=== PATIENT | male | born 1940 | race Caucasian/White ===

== ENCOUNTER 2016-09-02 06:07 | Day surgery (SDC) | payer MEDICARE, MEDICAID ==
[~2016-09-02] VITALS: Ht 165.1 cm; Wt 70.3 kg
[2016-09-02] VITALS (19 sets, daily range): BP systolic 93–149; BP diastolic 53–76; PULSE 64–82; RESP 14–24; TEMP 97.7–98.4; O2SAT 92–99; Ht 165.1 cm; Wt 70.3 kg
[~2016-09-02 06:07] MED LIST: ALBU18HF4; ASCO-285 PO; ATOR40TA64 PO; CALC-699 PO; DOCU-139 PO; GABA-338 PO; HYDR-4010 PO; HYDR25TA PO; LISI40TA4 PO; MECL-103 PO; MELO-273 PO; METO-279 PO; NIAC500C9 PO; POTA10CA32 PO; RANI150T7 PO; VITA-285 PO; [UNRECOGNIZED DRUG - CODE]; [UNRECOGNIZED DRUG - CODE] PO; [UNRECOGNIZED DRUG - CODE] PO
--- OUTSIDE RECORDS SUMMARY | 2016-09-02 06:13 | XMS REPORT | Continuity of Care Document ---
Author Author [facility] Organization [facility] Address Unknown Phone Unavailable Support Name Relationship Address Phone OCTOBER, LINDSEY Jean DO Caregiver [address] [place] [address] Unavailable SATISH NUNEZ DO Caregiver [address] [place] [address] Unavailable KAVYA SIFUENTES Next Of Kin [address] [place] [address] Insurance Providers Guarantor Joyce Wright Address [address] [place] [address] SIS Email DENIED 16 Payer [facility] Policy Number [id number] Subscriber's Name Joyce Wright Relationship 18 Self Effective Date 16 Expiration Date 16 Payer Medicare Policy Number [id number] Subscriber's Name Joyce Wright Relationship 18 Self Chief Complaint and Reason for Visit Chief Complaint Chest Pain Reason for Visit Rib pain on right side [id number] Constipation Problems Active Problems Medical Problem Onset Date Status Abdominal cramps Unknown Acute Abdominal pain Unknown Acute Mental retardation Unknown Chronic Opiate dependence Unknown Chronic Shoulder pain, right Unknown Chronic Past Problems Medical Problem Onset Date Constipation Unknown External hemorrhoid Unknown Leg pain, right Unknown Rib pain on right side Unknown Medications Current Home Medications Medication Dose Units Route Directions Days Qty Instructions Start Date Acetaminophen (Pain Relief) 500 Mg Tablet 2 Tab Oral As Needed Albuterol Sulfate (Ventolin Hfa) 18 Gm Hfa.aer.ad As Needed 10/13/09 Ascorbic Acid (Vitamin C) 1,000 Mg Tablet.sa 1 Tab Oral Daily 02/14 Atorvastatin Calcium (Lipitor) 10 Mg Tablet 1 Tab Oral Daily 02/14 Calcium Carbonate/Vitamin D3 (Calcium 600 + D Tablet) 1 Tab Tablet 1 Tab Oral Daily 10/13/09 Codeine/Promethazine Hcl (Promethazine/Codeine Syrup) 120 Ml Syrup 10/13/09 Docusate Sodium (Stool Softener) 100 Mg Capsule 1 Tab Oral Twice A Day 10/13/09 Hydrocodone/Acetaminophen (Lortab 7.5-325 Mg Tablet) 1 Each Tablet 1 Tab Oral Every 8 Hours as needed for Pain 07/30/16 Lisinopril/Hydrochlorothiazide (Lisinopril-Hctz 10-12.5 Mg Tab) 1 Each Tablet 1 Tab Oral Daily 07/30/16 Meloxicam 7.5 Mg Tablet 7.5 Mg Oral Daily 07/30/16 Metoprolol Succinate (Toprol Xl) 50 Mg Tab.sr.24h 2 Tab Oral Daily 10/13/09 Niacin 500 Mg Capsule.sa 1 Tab Oral Bedtime 10/13/09 Phenytoin Sodium 100 Mg Capsule 3 Cap Oral Daily 10/13/09 Potassium Chloride 10 Meq Capsule.sa 1 Cap Oral Daily 10/13/09 Ranitidine Hcl 150 Mg Tablet 150 Mg Oral Bedtime Take 1 tablet, by mouth, 1 time a day (at BEDTIME). 07/30/16 Vitamin E 1,000 Unit Capsule 1 Cap Oral Daily 10/13/09 Social History Social History Problem Response Recorded Date/Time Onset Date Status Chewing Tobacco Status No 07/30/2016 4:49am Not Applicable Not Applicable Hx Substance Use No 07/30/2016 4:49am Not Applicable Not Applicable Hx Alcohol Use No 07/30/2016 4:49am Not Applicable Not Applicable Tobacco Usage none 06/08/2015 12:20am Not Applicable Not Applicable Query Response Start Date Stop Date Smoking Status Never smoker Hospital Discharge Instructions No hospital discharge instructions. Plan of Care Discharge Date 07/30/16 5:52am Disposition 01 DISCHARGED HOME, SELF-CARE Condition at Discharge Improved Instructions/Education Provided Fall Prevention for Older Adults (ED) Prescriptions See Medication Section Referrals KARIE CHEW DO Order Date: 3 Days Note: Additional Instructions/Education We have evaluated you for breaks and bruises. At this time it appears that you just have some bruising. In addition, we noted that you are constipated. Continue to take your previously prescribed pain meds; discuss a more aggressive bowel regimen with your doctor to help with the constipation and likely constipation pain. Follow up with your doctor as soon as possible. Care Plan and Goals Physician Care Plan Problem: Contusion Goal: Follow up with primary care provider Instructions: Take medications and follow care plan as discussed/written Functional Status No functional status results. Allergies, Adverse Reactions, Alerts Allergen Type Severity Reaction Status Last Updated diphenhydramine HCl Allergy Unknown Active 07/30/16 Aspirin Allergy Intermediate HIVES Active 07/30/16 Ampicillin Allergy Severe HIVES Active 07/30/16 BEE STINGS Allergy Unknown Active 01/05/09 Immunizations Query Response on File Recorded Date/Time Hx Tetanus Diptheria Y 07/09/12 07/09/12 5:00pm Influenza Vaccine Hx UNKNOWN 07/30/16 4:49am Vital Signs Acute Vital Signs Vital Response Date/Time Temperature (Fahrenheit) 99.6 deg F (96.8 - 99.1) 07/30/2016 4:37am Temperature (Calculated Celsius) 37.51703 degrees C (36.0 - 37.3) 07/30/2016 4:37am Pulse Rate (adult) 85 bpm (60 - 100) 07/30/2016 4:37am Respiratory Rate 24 breaths/min (10 - 20) 07/30/2016 4:37am O2 Sat by Pulse Oximetry 93 % (90 - 100) 07/30/2016 4:37am Blood Pressure 153/73 mm Hg 07/30/2016 4:37am Height (Feet) 5 feet 07/30/2016 4:37am Height (Inches) 6.00 inches 07/30/2016 4:37am Weight (Kilograms) 60.000 kg 07/30/2016 4:37am Body Mass Index (BMI) 21.0 07/30/2016 4:37am Results No known relevant diagnostic tests, laboratory data and/or discharge summary. Procedures Procedure Status Date Provider(s) Emergency dept visit Completed 06/27/16 Encounters Encounter Location Arrival/Admit Date Discharge/Depart Date Attending Provider Departed Emergency Room [facility] 07/30/16 4:27am 07/30/16 5: 52am LINDSEY JOEL DO Departed Emergency Room [facility] 06/27/16 1:19am 06/27/16 2: 45am SATISH VIEYRA MD Recent Diagnosis
--- OUTSIDE RECORDS SUMMARY | 2016-09-02 06:14 | XMS REPORT | Continuity of Care Document ---
Author Author [facility] Organization [facility] Address Unknown Phone Unavailable Allergies Active Description Code Type Severity Reaction Onset Reported/Identified Relationship to Patient Clinical Status Yes ampicillin NKMA N/A N/A 10/05/2013 Yes diphenhydrAMINE NKMA N/A N/A 10/05/2013 Yes DiphenhydrAMINE Hydrochloride NKMA N/A N/A 01/29/2014 Medications Problems Procedures Results Encounters ACCT No. Visit Date/Time Discharge Status Pt. Type Provider Facility Loc./Unit Complaint [id number] 08/01/2013 10:28:00 08/01/2013 23 :59:59 CLS Outpatient [id number] 05/02/2013 10:27:00 05/02/2013 23 :59:59 CLS Outpatient
[2016-09-02] MEDS ORDERED: MIDAZOLAM 5mg/5ml INJECTION ONE (06:53)
[2016-09-02] MEDS ORDERED: SALINE FLUSH 10ml SYRINGE ONE (06:53)
[2016-09-02] MEDS ORDERED: FENTANYL 100mcg/2ml INJECTION ONE (06:53)
[2016-09-02] MEDS ORDERED: LR 1,000 ML IV SCH (07:00)
[2016-09-02] MEDS ORDERED: LIDOCAINE 1% (10mg/ml) 2ml SDV INJ ONE (07:00)
[2016-09-02] MEDS ORDERED: FENTANYL 100mcg/2ml INJECTION IV PRN (07:38)
[2016-09-02] MEDS ORDERED: MIDAZOLAM 5mg/5ml INJECTION IV PRN (07:38)
[2016-09-02] MEDS ORDERED: CLINDAMYCIN 600mg IVPB 50 ML IV ONE (07:45)
[2016-09-02] MEDS ORDERED: MIDAZOLAM 2mg/2ml INJECTION ONE (07:52)
--- NOTE | 2016-09-02 13:14 | OPNOTEF ---
DATE OF OPERATION 09/02/2016 INDICATION Rectal bleeding OPERATION Colonoscopy SURGEON Michael Preciado D.O. ASA CLASSIFICATION III Consent signed and on the chart. Routine monitoring with ECG, continuous oximetry and noninvasive blood pressure was performed throughout the procedure and found to be within normal limits. IV sedation was performed with 6 mg of Versed and 60 mcg of Fentanyl. He was also given 600 mg of clindamycin prior to the procedure secondary to indwelling hardware. Prior to the procedure, the patient was brought to the endoscopy lab where a brief review of his medical history and physical exam was performed. The procedure was described to him and he was agreeable to continue. All questions were answered. DESCRIPTION OF OPERATION He was given IV sedation and placed in the left lateral decubitus position. A digital rectal exam revealed a normal size and contour prostate. The colonoscope was introduced through the anal verge and immediately noted prominent rectal veins, none of which were bleeding. The endoscope was advanced to the cecum. Upon reaching the cecum, multiple washings were performed and careful inspection of the mucosa was performed. There were no polyps, masses, lesions or diverticula from the cecum through the ascending, transverse colon, most of the descending colon. Sigmoid colon did have diverticulosis. Then again at the rectum the prominent rectal veins were noted. The endoscope was retroflexed. He did have a few small shallow ulcerations at the distal rectum. He tolerated the procedure well. There were no complications. IMPRESSION 1. Diverticulosis of the sigmoid colon. 2. Prominent rectal veins with small ulcers in the rectum. RECOMMENDATIONS 1. Anusol HC suppository. 2. Might consider Propranolol if needed. I think he has increased portal pressure causing the prominent rectal veins. [facility]
== END 2016-09-02 09:05 | disposition home or self-care (01) ==
LOC: NSC 06:07
PROVIDERS: ATTEND Internal Medicine
DX: K62.6 Ulcer of anus and rectum (principal); K62.5 Hemorrhage of anus and rectum; K57.30 Diverticulosis of large intestine without perforation or abscess without bleeding; E11.9 Type 2 diabetes mellitus without complications; G89.29 Other chronic pain; G40.909 Epilepsy, unspecified, not intractable, without status epilepticus; I10 Essential (primary) hypertension; E78.5 Hyperlipidemia, unspecified; Z79.899 Other long term (current) drug therapy; Z87.891 Personal history of nicotine dependence
CPT/HCPCS: 45378; 82948; J2250; J3010

== ENCOUNTER 2016-10-04 14:16 | Emergency (ER) | payer MEDICARE, MEDICAID ==
[~2016-10-04] VITALS: Ht 170.2 cm; Wt 69.7 kg
[~2016-10-04 14:16] MED LIST changes: -ALBU18HF4; +ALBU18HF4 INH; -[UNRECOGNIZED DRUG - CODE]; +[UNRECOGNIZED DRUG - CODE] PO
--- OUTSIDE RECORDS SUMMARY | 2016-10-04 14:20 | XMS REPORT | Continuity of Care Document ---
Author Author [facility] Organization [facility] Address Unknown Phone Unavailable Support Name Relationship Address Phone SATISH NUNEZ DO Caregiver [address] [place] [address] Unavailable SATISH NUNEZ DO Caregiver [address] [place] [address] Unavailable KAVYA SIFUENTES Next Of Kin [address] [place], [place] [id number] Insurance Providers Guarantor Joyce Wright Address [address] [place] [address] SIS Email DENIED 16 Payer [facility] Policy Number [id number] Subscriber's Name Joyce Wright Relationship 18 Self Effective Date 16 Expiration Date 16 Payer Medicare Policy Number [id number] Subscriber's Name Joyce Wright Relationship 18 Self Advance Directives Directive Response Recorded Date/Time Ordered Resuscitation Status Full Code, unverified 09/01/16 10:42am Resuscitation Documents on File No 09/02/16 6:28am DPOA for Healthcare Only Y kavya sifuentes, sister 09/02/16 6:28am Living Will Yes 09/02/16 6:28am Problems Active Problems Medical Problem Onset Date [...] 1 Tab Oral Daily 02/14 Atorvastatin Calcium 40 Mg Tablet 1 Tab Oral Bedtime 09/01/16 Calcium Carbonate/Vitamin D3 (Calcium 600 + D Tablet) 1 Tab Tablet 1 Tab Oral Daily 10/13/09 Codeine/Promethazine Hcl (Promethazine/Codeine Syrup) 120 Ml Syrup 10/13/09 Docusate Sodium (Stool Softener) 100 Mg Capsule 1 Tab Oral Twice A Day 10/13/09 Gabapentin 300 Mg Capsule 1 Cap Oral Twice A Day 09/01/16 Hydrochlorothiazide 25 Mg Tablet 1 Tab Oral Give With Breakfast 09/01/16 Hydrocodone/Acetaminophen (Lortab 7.5-325 Mg Tablet) 1 Each Tablet 1 Tab Oral Every 8 Hours as needed for Pain 07/30/16 Lisinopril 40 Mg Tablet 40 Mg Oral Daily for Hypertension Meclizine Hcl 25 Mg Tablet 25 Mg Oral Three Times A Day Take 1 tablet, by mouth, 2 times a day. 09/01/16 Meloxicam 7.5 Mg Tablet 7.5 Mg Oral Daily 07/30/16 Metoprolol Succinate 100 Mg Tab.er.24h 2 Tab Oral Daily 09/01/16 Niacin 500 Mg Capsule.sa 1 Tab Oral Bedtime 10/13/09 Phenytoin Sodium 100 Mg Capsule 3 Cap Oral Bedtime 10/13/09 Potassium Chloride 10 Meq Capsule.sa 1 Cap Oral Daily 10/13/09 Ranitidine Hcl 150 Mg Tablet 150 Mg Oral Bedtime Take 1 tablet, by mouth, 1 time a day (at BEDTIME). 07/30/16 Vitamin E 1,000 Unit Capsule 1 Cap Oral Daily 10/13/09 Social History Social History Problem Response Recorded Date/Time Onset Date Status Reason for Hospitalization RECTAL BLEEDING 09/02/2016 8:33am Not Applicable Not Applicable Hx Substance Use No 09/01/2016 1:40pm Not Applicable Not Applicable Hx Alcohol Use No 09/01/2016 1:40pm Not Applicable Not Applicable Has the pt used tobacco in the last 12 months No 09/01/2016 1:40pm Not Applicable Not Applicable Tobacco Usage none 06/08/2015 12:20am Not Applicable Not Applicable Query Response Start Date Stop Date Smoking Status Former smoker Hospital Discharge Instructions Instructions: Care Instructions: I was in the hospital because (patient own words): "colonoscopy" Discharge Diet: You may resume your usual diet. Discharge Activity: You may resume your usual activity. Follow Up Appointments: Follow up with Dr. Nunez as instructed. You can call his office for any questions or concerns. Pending Lab / Results: No Pending Lab Patient Instructions: Do not drive, operate machinery, drink alcohol, or sign important papers for 24 hours. USE ANUSAL SUPPOSITORY 2 TIMES A DAY FOR 6 DAYS Expected Signs/Symptoms: You may have some gas discomfort. Notify Physician If: Contact if you have a fever over 101 degrees, severe abdominal pain, or severe rectal bleeding. During Business Hours:: During office hours, call Dr. Nunez's office at [phone]. After Business Hours:: Please call [facility] at [phone] and have the side seam machine operator page Dr. Nunez or the covering physician. Pain Management/Treatment: You should not have significant pain following the procedure. Wound/Incision Care: No wound care required. Condition at time of discharge: Good Plan of Care Discharge Date 09/02/16 9:05am Instructions/Education Provided [facility] [place] Prescriptions See Medication Section Functional Status Query Response Date Recorded Ability to complete ADL's impeded by No change September 02, 2016 6:28am Allergies, Adverse Reactions, Alerts Allergen Type Severity Reaction Status Last Updated diphenhydramine HCl Allergy Unknown Active 09/02/16 Aspirin Allergy Intermediate HIVES Active 09/02/16 Ampicillin Allergy Severe HIVES Active 09/02/16 BEE STINGS Allergy Unknown Active 01/05/09 Immunizations Query Response on File Recorded Date/Time Hx Influenza Vaccination Y fall 201509/01/16 1:40pm Hx Pneumococcal Vaccination Y fall 201509/01/16 1:40pm Hx Influenza Vaccination Y fall 201509/01/16 1:40pm Hx Tetanus Diptheria Y 07/09/12 07/09/12 5:00pm Influenza Vaccine Hx UNKNOWN 07/30/16 4:49am Vital Signs Acute Vital Signs Vital Response Date/Time Temperature (Fahrenheit) 97.7 deg F (96.8 - 99.1) 09/02/2016 8:19am Temperature (Calculated Celsius) 36.15499 degrees C (36.0 - 37.3) 09/02/2016 8:19am Temperature Source Temporal 09/02/2016 8:19am Pulse Rate (adult) 79 bpm (60 - 100) 09/02/2016 8:49am Respiratory Rate 24 breaths/min (10 - 20) 09/02/2016 8:49am O2 Sat by Pulse Oximetry 93 % (90 - 100) 09/02/2016 8:49am Oxygen Delivery Method Mask 09/02/2016 8:15am Oxygen Delivery Method Room Air 09/02/2016 8:49am Oxygen Flow Rate 6.00 L/min 09/02/2016 8:15am Blood Pressure 128/76 mm Hg 09/02/2016 8:49am Blood Pressure Source Automatic Cuff 09/02/2016 8:49am Height (Feet) 5 feet 09/02/2016 6:26am Height (Inches) 5.00 inches 09/02/2016 6:26am Weight (Kilograms) 70.300 kg 09/02/2016 6:26am Body Mass Index (BMI) 25.8 09/02/2016 6:26am Results Laboratory Results Test Name Result Units Flags Reference Collection Date/Time Result Date/ Time Comments Glucometer 100 mg/dL 75-110 09/02/2016 6:27am 09/02/2016 6:33am Procedures Procedure Status Date Provider(s) Emergency dept visit Completed 06/27/16 X-ray exam unilat ribs/chest Completed 07/30/16 Ther/proph/diag inj sc/im Completed 07/30/16 Emergency dept visit Completed 07/30/16 [id number]"INJECTION, KETOROLAC TROMETHAMINE, PER 15 MG" Completed 07/30/16 Colonoscopy Completed 09/02/16 SATISH NUNEZ DO Encounters Encounter Location Arrival/Admit Date Discharge/Depart Date Attending Provider Departed [facility] 09/02/16 6:07am 09/02/16 9: 05am SATISH NUNEZ DO Departed Emergency Room [facility] 07/30/16 4:27am 07/30/16 5: 52am LINDSEY JOEL DO Departed Emergency Room [facility] 06/27/16 1:19am 06/27/16 2: 45am SATISH VIEYRA MD
[2016-10-04 14:21] VITALS: Ht 170.2 cm; Wt 69.7 kg
--- OUTSIDE RECORDS SUMMARY | 2016-10-04 14:21 | XMS REPORT | Continuity of Care Document ---
Author Author [facility] Organization [facility] Address Unknown Phone Unavailable Allergies Active Description Code Type Severity Reaction Onset Reported/Identified Relationship to Patient Clinical Status Yes ampicillin NKMA N/A N/A 10/05/2013 Yes diphenhydrAMINE NKMA N/A N/A 10/05/2013 Yes DiphenhydrAMINE Hydrochloride NKMA N/A N/A 01/29/2014 Medications Problems Procedures Results Encounters ACCT No. Visit Date/Time Discharge Status Pt. Type Provider Facility Loc./Unit Complaint [id number] 08/01/2013 10:28:00 08/01/2013 23 :59:59 CLS Outpatient [id number] 05/02/2013 10:27:00 05/02/2013 23 :59:59 CLS Outpatient
[2016-10-04] MEDS ORDERED: NORMAL SALINE 1,000 ML IV ONE (14:30)
--- OUTSIDE RECORDS SUMMARY | 2016-10-04 14:33 | XMS REPORT | Continuity of Care Document ---
Author Author [facility] Organization [facility] Address Unknown Phone Unavailable Allergies Active Description Code Type Severity Reaction Onset Reported/Identified Relationship to Patient Clinical Status Yes ampicillin NKMA N/A N/A 10/05/2013 Yes diphenhydrAMINE NKMA N/A N/A 10/05/2013 Yes DiphenhydrAMINE Hydrochloride NKMA N/A N/A 01/29/2014 Medications Problems Procedures Results Encounters ACCT No. Visit Date/Time Discharge Status Pt. Type Provider Facility Loc./Unit Complaint [id number] 08/01/2013 10:28:00 08/01/2013 23 :59:59 CLS Outpatient [id number] 05/02/2013 10:27:00 05/02/2013 23 :59:59 CLS Outpatient
--- NOTE | 2016-10-04 14:34 | ERPDOC ---
Departure Disposition Decision Date: Oct 04, 2016 Disposition Decision Time: 15:57 Disposition: 01 DISCHARGED HOME, SELF-CARE Impression Impression Impression: Primary Impression: Generalized weakness Severity: Moderate Condition: Stable Seen By: Mid-level only Referrals: SATISH NUNEZ DO (Family) Patient Instructions: Weakness (ED) Problems/Meds/Labs Reviewed?: Yes Medications reviewed and manag: Yes Additional Instructions: Labs, urine, and chest xray today are normal. No specific reason was found for his weakness today. I do want you to get in touch with his primary care provider for reevaluation and possible placement to a senior care facility. I will see is the social media developer here can contact you and see if there are options available for you as well that they may be able to recommend. Follow up care ordered?: Yes Mental Status: Alert HPI - General Medical General Chief Complaint: General Stated Complaint: WEAK PULSE, SHAKING, BODY PAIN, SLUMPING Time Seen by Provider: 14:24 Source: patient, family (sister) Exam Limitations: no limitations HPI - General Medical Initial Comments He lives at home in his own home with his sister. He has another sister who is with him today who helps to take care of him. She states that this morning the [employer] sewer and his friend were concerned that his pulse was weak and he was not doing well. She states that over the last several weeks he has had some increased trouble with weakness at home. He has fallen several times. Last time he fell was last week. He was in the bathroom and did not have his walker with him and fell onto the floor. Did not hit his head or have any LOC. She was with him when the fall occurred. It did take about an hour to get him up and calmed down. He denies any fever/chill, nausea/vomiting, diarrhea, or cough. He does eat and drink well at home. Has been taking his medications at home as prescribed. His sister with him today is concerned that he needs to be in the fdc to improve his generalized weakness. Occurred At: home Onset: Gradual Duration: other (Over the last several weeks) Severity: moderate Associated Symptoms: malaise, DENIES: chest pain, cough, diaphoresis, fever/ chills, headaches, loss of appetite, nausea/vomiting, rash, seizure, shortness of breath, syncope, weakness Hx of Similar Symptoms: No Allergies: Coded Allergies: ampicillin (Verified Allergy, Severe, HIVES, 10/04/16) aspirin (Verified Allergy, Intermediate, HIVES, 10/04/16) diphenhydramine HCl (Verified Allergy, Unknown, 10/04/16) Uncoded Allergies: BEE STINGS (Allergy, Unknown, 01/05/09) Past History Past Medical History Metabolic: diabetes, hypercholesterolemia, hypertension Respiratory: asthma GI: constipation Neurological: seizures Psychological: bipolar, depression Surgical History General: hernia Joint: shoulder Family History Family PMH: FOUND: CAD, diabetes, hypertension Vaccines Hx Influenza Vaccination: Yes (FALL 2015) Hx Pneumococcal Vaccination: Yes (FALL 2015) Hx Tetanus Diptheria: Yes (07/09/12) Social History Smoking Status: Never smoker Substance Use Type: does not use Alcohol Intake: none Review of Systems Constitutional Constitutional: weakness, DENIES: appetite decrease, chills, dizziness, fatigue , fever ENMT Ears: DENIES: drainage, pain Sinuses: DENIES: congestion, rhinorrhea Mouth/Throat: DENIES: painful swallowing, scratchy throat, sore throat Cardiovascular Cardiac: DENIES: chest pain, dyspnea on exertion, orthopnea Rhythm/Rate: DENIES: irregular beat, palpitations Vascular: DENIES: pedal edema, unilateral swelling Pulmonary Respiratory: DENIES: cough, dyspnea, sputum, tachypnea GI Upper Abdomen: DENIES: nausea, pain, vomiting Lower Abdomen: DENIES: constipation, diarrhea, pain Musculoskeletal General: DENIES: joint pain, joint swelling, pain, tenderness Integumentary Skin: DENIES: rash Neurological General: change in strength, poor coordination, weakness, DENIES: headache, numbness, paralysis/paresis, seizures, syncope, tingling Physical Exam General General Nourishment: well nourished, well developed, appears stated age, no acute distress, adult, thin General Body Habitus: well groomed Vitals and Pain First Documented Vital Signs Date Time Temp Pulse Resp B/P Pulse Ox O2 Delivery O2 Flow Rate FiO2 10/04/16 14:21 98.8 67 16 136/64 92 Room Air Weight: Kilograms: Height (feet): 5 Height (inches): 5.00 Triage Pain Scale: RN VS reviewed by Provider: Yes Normal Exams: Eyes: Pupils are PERRLA w/ EOMI, No scleral icterus, irritation, or foreign bodies noted ENMT: No facial trauma, nasal exudates, pharyngeal erythema, or exudates are noted Neck: Full range of motion, without adenopathy, JVD, bruits or thyromegaly Chest/Resp: Clear all granda, with good airflow, and symmetry bilaterally CV: Regular rate and rhythm, without murmur or gallop, Pulses 2+ all extremities, capillary refill, <2 seconds all ext., no pedal edema noted Abdomen: Bowel sounds positive, soft, non-tender, non-distended, no hepatosplenomegaly, masses or bruits noted Lymphatic: No lymphadenopathy, or lymphedema noted Musculoskeletal: No tenderness, or deformity noted, good range of motion, all extremities Integumentary: No rashes, hives, or bruising noted Neurologic: Patient is alert, and oriented, cranial nerves, motor/sensory/ cerebellar, exams w/o gross deficits, to observation Psychiatric: Patient exhibits, appropriate attention, emotion and affect Differential Diagnoses Considering: Acute [place], DKA, Encephalitis, Hypo/Hyperglycemia, Hypo/Hyperkalemia , Hypo/Hypernatremia, Medication Effect, Metabolic, Pneumonia, UTI Progress Results/Orders Orders Procedure Category Date Status Time EKG EKG 10/04/16 Logged Troponin I W LAB 10/04/16 Complete Hemolysis Index Chest, Pa & Lateral RAD 10/04/16 Taken Cbc W/Auto LAB 10/04/16 Complete Diff-Reflex Manual Cmp - Comprehensive LAB 10/04/16 Complete Metabolic Iv Lock (Ed Only) EDM 10/04/16 Transmitted 14:29 Normal Saline (Normal PHA 10/04/16 Complete Saline Iv) 14:30 UA, LAB 10/04/16 Complete Dip&Micro(Complete) & 15:03 Lab Results Laboratory Tests Test 10/04/16 14:26 10/04/16 14:55 10/04/16 15:03 Glucometer 103mg/dL White Blood Count 6.1T/MM3 Red Blood Count 4.03M/MM3 Hemoglobin 13.4GM/DL Hematocrit 40.9% Mean Corpuscular Volume 101.5UM3 Mean Corpuscular Hemoglobin 33.3UUG Mean Corpuscular Hemoglobin Concent 32.8GM/DL RDW Standard Deviation 53.7FL Platelet Count 244T/MM3 Mean Platelet Volume 8.7UM3 Immature Granulocyte % (Auto) 0.0% Neutrophils (%) (Auto) 55.5% Lymphocytes (%) (Auto) 29.5% Monocytes (%) (Auto) 14.7% Eosinophils (%) (Auto) 0.0% Basophils (%) (Auto) 0.3% Absolute Immature Granulocyte (auto 0.00T/MM3 Absolute Neutrophils (auto) 3.4T/MM3 Absolute Lymphocytes (auto) 1.8T/MM3 Absolute Monocytes (auto) 0.9T/MM3 Absolute Eosinophils (auto) 0.0T/MM3 Absolute Basophils (auto) 0.0T/MM3 Turbidity < 20 Sodium Level 149MEQ/L Potassium Level 4.3MEQ/L Chloride Level 112MEQ/L Carbon Dioxide Level 23MEQ/L Anion Gap 14MEQ/L Blood Urea Nitrogen 30.0MG/DL Creatinine 1.0MG/DL Glomerular Filtration Rate Calc 73 BUN/Creatinine Ratio 30RATIO Glucose Level 100MG/DL Calculated Osmolality 292MOSM/KG Calcium Level 8.3MG/DL Total Bilirubin 0.50MG/DL Icterus Index < 2 Aspartate Amino Transf (AST/SGOT) 48U/L Alanine Aminotransferase (ALT/SGPT) 77U/L Alkaline Phosphatase 75U/L Troponin I < 0.012ng/ml Total Protein 7.5G/DL Albumin 3.8G/DL Globulin 3.7G/DL Albumin/Globulin Ratio 1.0RATIO Chemistry Specimen Hemolysis < 15 Urine Collection Type Cleancatch-midstream Urine Color Yellow Urine Turbidity Clear Urine pH 5.0 Urine Specific [place] 1.025 Urine Protein 1+ Urine Glucose (UA) Negative Urine Ketones Trace Urine Blood Negative Urine Nitrite Negative Urine Bilirubin Negative Urine Urobilinogen 0.2EU/DL Urine Leukocyte Esterase Negative Urine RBC 0-1/HPF Urine WBC 0-1/HPF Urine Squamous Epithelial Cells 0-5 Urine Bacteria 2+ Urine Hyaline Casts 1-3/LPF Urine Mucus Present Urine Culture Indicated Cult not indicated Medications Current ED Medications Sodium Chloride (Normal Saline IV) 1,000 ml @ 1,000 mls/hr Q1H ONCE IV Last administered on 10/04/16t 15:15; Start 10/04/16 at 14:30; Stop 10/04/16 at 15:29 ; Status DC Progress Progress CBC, troponin, and UA today are clear. Chest xray without focal pneumonia. His vitals have been stable while in Er. CMP is normal aside from elevated NA-149 and BUN of 30. Did give 1 liter of NS IV in ER. Did speak with Leon and his sister. She is going to check with his PCP tomorrow about getting into a senior care facility. Will have social media developer contact them as well to see about assistance with this. Xray Xray : Reason for Exam: generalized weakness Xray: CXR PA/Lat Interpretation: Normal ANDRE JIMÉNEZ APRN Oct 04, 2016 14:34
[2016-10-04 15:00] LABS: BASOPHILS % (AUTO) 0.3 % (0-2); HCT - HEMATOCRIT 40.9 % (41-53); HGB - HEMOGLOBIN 13.4 GM/DL (13.5-17.5); LYMPHOCYTES # (AUTO) 1.8 T/MM3 (1-4.8); LYMPHOCYTES % (AUTO) 29.5 % (23-45); MEAN CORPUSCULAR HGB 33.3 UUG (26-34); MEAN CORPUSCULAR HGB CONC(MCHC 32.8 GM/DL (31-37); MEAN CORPUSCULAR VOLUME 101.5 UM3 (80-100); MEAN PLATELET VOLUME 8.7 UM3 (9.4-12.4); MONOCYTES # (AUTO) 0.9 T/MM3 (0-0.8); MONOCYTES % (AUTO) 14.7 % (0-9.0); NEUTROPHILS #(AUTO)-ABSOLUTE 3.4 T/MM3 (1.8-7.7); NEUTROPHILS % (AUTO) 55.5 % (33-66); RED BLOOD COUNT 4.03 M/MM3 (4.50-5.90); WBC - WHITE BLOOD COUNT 6.1 T/MM3 (4.5-11.0)
[2016-10-04] MEDS ORDERED: HYDR-4072 PO (15:03)
[2016-10-04 15:07] LABS: BLOOD, URINE NEGATIVE (NEGATIVE); COLOR,URINE YELLOW (YELLOW); LEUKOCYTE ESTERASE ,URINE NEGATIVE (NEGATIVE); NITRITE,URINE NEGATIVE (NEGATIVE); UROBILINOGEN,URINE 0.2 EU/DL (NORMAL)
[2016-10-04] MEDS ORDERED: POTA10CA37 PO (15:07)
[2016-10-04 15:10] LABS: ALBUMIN 3.8 G/DL (3.5-5.0); ALKALINE PHOSPHATASE 75 U/L (38-126); ALT (SGPT) 77 U/L (21-72); ANION GAP 14 MEQ/L (5-15); AST (SGOT) 48 U/L (17-59); BUN/CREATININE RATIO 30 RATIO (6-26); CALCIUM 8.3 MG/DL (8.4-10.2); CHLORIDE 112 MEQ/L (98-107); CO2 - CARBON DIOXIDE 23 MEQ/L (22-30); GLOMERULAR FILTRATION RATE 73; GLUCOSE 100 MG/DL (75-110); POTASSIUM 4.3 MEQ/L (3.6-5); SODIUM 149 MEQ/L (134-144); TOTAL PROTEIN 7.5 G/DL (6.3-8.2)
[2016-10-04] MEDS ORDERED: PHEN100C12 PO (15:16)
[2016-10-04] MEDS ORDERED: PROP160C2 PO (15:16)
[2016-10-04] MEDS ORDERED: POLY119P3 PO (15:17)
[2016-10-04 15:27] LABS: BACTERIA,URINE 2+ (NEGATIVE); MUCUS,URINE PRESENT; RBC,URINE 0-1 /HPF (0-3); SQUAMOUS EPITHELIAL CELL,UR 0-5; WBC,URINE 0-1 /HPF (0-5)
--- NOTE | 2016-10-04 15:37 | NUR ---
BACK IN ROOM
--- NOTE | 2016-10-04 15:45 | NUR ---
QIANA JIMÉNEZ HIDE AND SKIN FLESHING MACHINE OPERATOR IN WITH PT
[2016-10-04 16:35] VITALS: BP 139/65; PULSE 67; RESP 16; TEMP 98.8; O2SAT 94
--- NOTE | 2016-10-04 21:15 | DI ---
INDICATION: ITS.REASON: weakness PROCEDURE: CHEST 2-VIEWS UPRIGHT (PA \T\ LAT) Encounter: Initial COMPARISON: July 30, 2016 FINDINGS: Lungs are mildly hypoinflated. There is some obscuration of left diaphragm which is due to an overlapping cardiac silhouette and soft tissues. Small amount of underlying airspace disease is difficult to exclude here. The right lung appears hypoinflated but clear. No pneumothorax or obvious effusion. Cardiac silhouette remains enlarged. Mediastinal contours and pulmonary vascularity are stable. Impression: Overall stable chest without focal pneumonia or overt congestive failure. Small left lower lobe infiltrate cannot be entirely excluded. Recommend clinical and laboratory correlation. .
--- NOTE | 2016-10-05 16:24 | NUR ---
ED FOLLOW UP THIS WORKER CALLED AND SPOKE TO KAVYA DURON [phone]. KAVYA REPORTED THAT SHE WAS PLANNING TO CALL DR. NUNEZ'S OFFICE TODAY TO GET APPOINTMENT FOR PT FOR A FOLLOW UP. REPORTED THAT SHE AND PT HAVE DISCUSSED POSSIBLE TEMPORARY PLACEMENT INTO A SNF. SISTER REPORTED THAT THEY HAVE DISCUSSED [facility]. DENIED ANY ASSISTANCE WITH CONTACTING THESE AGENCIES. REPORTED THAT SHE WOULD LIKE TO TAKE PT TO HIS PCP AND THEN DISCUSS SPECIFICS. THIS WORKER INQUIRED REGARDING ANY NEED FOR HOME HEALTH SERVICES. WAS IN AGREEMENT WITH HOME HEALTH AT THIS TIME AND REQUESTED FOR THIS . THIS WORKER LEFT MESSAGE WITH DR. NUNEZ'S NURSE INQUIRING. THIS WORKER MADE REFERRAL TO ([facility]). REQUESTED A FOLLOW UP CALL ON 10/07/16. Addendum: 10/05/16 at 1629 by CHELLY SUN Amended: Links added.
== END 2016-10-04 16:35 | disposition home or self-care (01) ==
LOC: ED 14:16
DX: R53.1 Weakness (principal); R53.81 Other malaise; I10 Essential (primary) hypertension; E11.9 Type 2 diabetes mellitus without complications
CPT/HCPCS: 71020; 80053; 81001; 82948; 84484; 85025; 93005; 96360; 99284; J7030